=== PATIENT | female | born 1965 ===

== ENCOUNTER → 2025-10-08 08:52 | Outpatient (BNVA) | payer MEDICAID, SELFPAY | PROVIDERS: Visit Provider Dermatology | DX: L30.9 Dermatitis, unspecified (principal); D22.5 Melanocytic nevi of trunk; L82.1 Other seborrheic keratosis | CPT/HCPCS: 11104; 99204 ==

== ENCOUNTER → 2025-10-22 11:21 | Outpatient (BNVA) | payer MEDICAID, SELFPAY | PROVIDERS: Visit Provider Dermatology | DX: L66.11 Classic lichen planopilaris (principal); Z79.899 Other long term (current) drug therapy | CPT/HCPCS: 99214 ==